=== PATIENT | female | born 1965 ===

== ENCOUNTER 2018-07-18 04:14 | Outpatient (CLI) | payer BC | END 2018-07-18 23:59 | disposition home or self-care (01) | LOC: DIABETIC 04:14 | PROVIDERS: ATTEND Family Medicine | DX: E11.65 Type 2 diabetes mellitus with hyperglycemia (principal); D14.2 Benign neoplasm of trachea; Z79.899 Other long term (current) drug therapy | CPT/HCPCS: G0108 ==